=== PATIENT | male | born 1995 | race Caucasian/White ===

== ENCOUNTER 2019-02-17 13:08 | Emergency (ER) | payer MEDICAID ==
[~2019-02-17] VITALS: Ht 165.1 cm; Wt 95.3 kg
[2019-02-17 13:08] VITALS: Ht 165.1 cm; Wt 95.3 kg
[2019-02-17 16:39] VITALS: BP 120/74
== END 2019-02-17 16:39 | disposition home or self-care (01) ==
LOC: ED 13:08
DX: S20.212A Contusion of left front wall of thorax, initial encounter (principal); W17.89XA Other fall from one level to another, initial encounter; Y93.89 Activity, other specified; Y92.89 Other specified places as the place of occurrence of the external cause; Y99.8 Other external cause status
CPT/HCPCS: J1885